=== PATIENT | female | born 1970 | race Caucasian/White ===

== ENCOUNTER 2017-05-01 09:41 | Emergency (ER) | payer BC ==
[2017-05-01] MEDS ORDERED: ORPHENADRINE CITRATE 30 MG/ML VIAL IM ONE (10:11)
[2017-05-01] MEDS ORDERED: NALBUPHINE HCL 20 MG/ML AMPUL IM ONE ×2 (10:12→12:02)
--- NOTE | 2017-05-01 10:48 | ERNOTE ---
Back Pain ER HPI Date of Service: 05/01/17 Presenting Symptoms: hx chronic back pain Time Seen by Provider: 05/01/17 09:59 Source: patient Exam Limitations: no limitations Immunizations: IMMUNIZATION HX Immunizations Up to Date No History of Influenza Vaccine Yes Hx Pneumococcal Vaccination No Allergies/Adverse Reactions: Allergies adhesive tape Adverse Reaction (Mild, Verified 06/09/16 07:57) RASH codeine Adverse Reaction (Mild, Verified 06/09/16 07:57) N/V Home Medications: HOME MEDICATIONS Desvenlafaxine Succinate [Pristiq] 50 mg PO DAILY 10/16/15 [Last Taken Unknown] Cyanocobalamin [Vitamin B-12] 1,000 mcg PO DAILY 06/06/16 [Last Taken Unknown] Ibuprofen [Motrin] 200 - 800 mg PO Q8H PRN 06/06/16 [Last Taken Unknown] Multivitamins [Multivitamin Genny] 1 cap PO DAILY 06/06/16 [Last Taken Unknown] Thyroid,Pork [[place] Thyroid] 60 mg PO DAILY 06/06/16 [Last Taken Unknown] HYDROcodone/ACETAMINOPHEN [[place] 5-325] 1 each PO Q6H PRN #60 tablet 06/09/16 [ Last Taken Unknown] Narrative: Pt. comes in with c/o severe thoracic and lumbar back pain for two weeks in which she received a set of plain films and a steroid injection and was started on Vicoprofen for this. Pt. then experienced an exacerbation of the pain this morning and called her physician and was told that she needed an MRI but they were working on scheduling it and that if she needed further treatment she needed to go to the ER. Pt. denies any numbness, tingling, SOB, CP, fever, or incontinence of bowel and bladder. Pt. ambulated into ER without difficulty. Review of Systems - Review of Systems Constitutional: Present: no symptoms reported. Absent: recent illness, fever, chills, weakness, fatigue, malaise EYE: Present: no symptoms reported ENT: Present: no symptoms reported Respiratory: Present: no symptoms reported. Absent: shortness of breath, cough , wheezing Cardiology: Present: no symptoms reported. Absent: chest pain, palpitations, edema Gastrointestinal/Abdominal: Present: no symptoms reported. Absent: nausea, vomiting, diarrhea Genitourinary: Present: no symptoms reported Musculoskeletal: Present: back pain. Absent: muscle pain, muscle stiffness, neck pain, joint pain, joint swelling Skin: Present: no symptoms reported Neurological: Present: no symptoms reported. Absent: headache, dizziness/light- headedness, numbness, tingling All Other Systems: All systems neg except as marked - Patient's Past Medical History Patient History - Medical: Hypothyroidism, Other Patient History - Cardiac/Respiratory: Other Patient History - Cancer: Cervical, Surgical Treatment Patient History - Surgical Procedures: Appendectomy, Cholecystectomy, Colonoscopy, EGD, Hysterectomy, T & A Patient History - Other: None - Family History Mother Family History - Medical: Cataracts, Diabetes Type 2 Insulin Dependent Family History - Cardiac/Respiratory: Bronchitis, CHF, Hypertension Father Family History - Medical: Cataracts, Diabetes Type 2 Insulin Dependent, Other Family History - Cardiac/Respiratory: Coronary Heart Disease, Hypertension, Hyperlipidemia - Social History Living Situations: spouse Abuse History: No History of abuse Psych History: No pertinent hx Does anyone smoke in the home?: No Smoking Status: Never smoker Have you smoked in the past 12 months: No Do you dip or chew tobacco: No Alcohol Use: occasionally Drug Use: none - Immunizations Immunizations Up to Date: No Hx Pneumococcal Vaccination: No History of Influenza Vaccine: Yes Physical Exam - Physical Exam General Appearance: Present: wd/wn, alert, no apparent distress Head Exam: Present: normal inspection, no evidence of injury Eye Exam: Normal inspection: bilateral, PERRL: bilateral, EOMI: bilateral Ears, Nose, Throat: Present: normal ENT inspection, normal pharynx Neck: Present: normal inspection, nontender, supple, full range of motion. Absent: tender lateral, tender posterior midline Respiratory: Present: no respiratory distress, normal breath sounds, no accessory muscle use, chest nontender, lungs clear. Absent: crackles, rales, rhonchi, stridor, wheezing Cardiovascular/Chest: Present: regular rate, rhythm, no murmur, normal peripheral pulses Gastrointestinal/Abdominal: Present: normal bowel sounds, nontender Back Exam: Present: vertebral tenderness - T 6/7 and L3-S1 , decreased range of motion - with pain, muscle spasm - R paraspinous, other - scoliosis curve mild Extremity Exam: Present: normal inspection, non-tender, normal range of motion, no edema Neurological Exam: Present: alert, oriented, normal mood/affect, no motor/ sensory deficits Skin Exam: Present: normal color, warm/dry. Absent: pallor, skin rash ED Progress - Vital Signs Patient's Vital Signs:: I have reviewed the patient's vital signs. Vital Signs: Vital Signs 05/01/17 05/01/17 09:46 10:31 Temperature 36.7 C Pulse Rate 70 75 Respiratory 18 Rate Blood Pressure 152/81 130/73 O2 Sat by Pulse 100 100 Oximetry - X-Ray X-Ray #1 X-Ray: thoracic Interpretation: Reviewed by me X-ray Comments: spondilolithesis at multiple levels worst at T10-11 X-Ray #2 X-Ray: lumbosacral Interpretation: Reviewed by me X-ray Comments: Spondilolithesis at multiple levels no stenosis. - Progress/Reassessment Chief Complaint: Back Pain Departure Clinical Impression: Spondyloarthropathy - Departure Disposition: Home self-care Condition: Good Instructions: Spondylolisthesis With [facility] Additional Instructions: Please follow up with primary provider for further referral to neurosurgeon and please start miralax daily 1 capful as long as you are taking narcotic pain medications. Please resume vicoprofen when you get home as directed by your PCP. May use over the counter lidoderm patches for additional pain relief. Referrals: Myron Pham DO [Primary Care Provider] -
[2017-05-01] MEDS ORDERED: NALBUPHINE HCL 20 MG/ML AMPUL ONE ×2 (11:11→12:11)
[2017-05-01] MEDS ORDERED: ORPHENADRINE CITRATE 30 MG/ML VIAL ONE (11:11)
[2017-05-01] MEDS ORDERED: LIDOCAINE 1 PATCH ADH..PATCH TP SCH (12:15)
[2017-05-01 12:23] LABS: Urine Bilirubin Negative (NEGATIVE); Urine Blood Negative /ul (NEGATIVE); Urine Ketone Negative (NEGATIVE); Urine Nitrite Negative (NEGATIVE); Urine Protein Negative (NEGATIVE); Urine Specific Gravity 1.015 SP.GR. (1.005-1.010); Urine Urobilinogen Normal (NORMAL); Urine pH 7.5 pH (5.0-7.0)
[2017-05-01 12:32] LABS: Urine Appearance Clear; Urine Bacteria None Seen; Urine Color Yellow; Urine RBC None Seen /hpf (0-5); Urine WBC None Seen /hpf (0-5)
[2017-05-01 12:36] LABS: Cocaine Ur Negative (NEGATIVE); Urine Barbiturate Negative (NEGATIVE); Urine Benzodiazepines Negative (NEGATIVE); Urine PCP Negative (NEGATIVE); Urine THC Negative (NEGATIVE)
[2017-05-01 12:37] LABS: Urine Opiates Positive (NEGATIVE)
[2017-05-01 13:00] VITALS: BP 130/80
== END 2017-05-01 13:10 | disposition home or self-care (01) ==
LOC: ER 09:41
DX: M47.9 Spondylosis, unspecified (principal); E03.9 Hypothyroidism, unspecified; Z85.41 Personal history of malignant neoplasm of cervix uteri

== ENCOUNTER 2017-05-01 18:47 | Observation (INO) | payer BC ==
[2017-05-01] MEDS ORDERED: NORMAL SALINE 1,000 ML IV PRN (19:01)
[2017-05-01] MEDS ORDERED: HYDROmorphone HCL 1 MG/ML DISP.SYRIN IV ONE ×4 (19:01→21:26)
--- NOTE | 2017-05-01 19:10 | ERNOTE ---
Back Pain ER HPI Date of Service: 05/01/17 Presenting Symptoms: hx chronic back pain Time Seen by Provider: 05/01/17 18:57 Source: patient Exam Limitations: no limitations Immunizations: IMMUNIZATION HX Immunizations Up to Date Yes History of Influenza Vaccine Yes Hx Pneumococcal Vaccination No Allergies/Adverse Reactions: Allergies adhesive tape Adverse Reaction (Mild, Verified 06/09/16 07:57) RASH codeine Adverse Reaction (Mild, Verified 06/09/16 07:57) N/V Home Medications: HOME MEDICATIONS Desvenlafaxine Succinate [Pristiq] 50 mg PO DAILY 10/16/15 [Last Taken Unknown] Cyanocobalamin [Vitamin B-12] 1,000 mcg PO DAILY 06/06/16 [Last Taken Unknown] Ibuprofen [Motrin] 200 - 800 mg PO Q8H PRN 06/06/16 [Last Taken Unknown] Multivitamins [Multivitamin Genny] 1 cap PO DAILY 06/06/16 [Last Taken Unknown] Thyroid,Pork [[place] Thyroid] 60 mg PO DAILY 06/06/16 [Last Taken Unknown] HYDROcodone/ACETAMINOPHEN [[place] 5-325] 1 each PO Q6H PRN #60 tablet 06/09/16 [ Last Taken Unknown] Narrative: Pt. comes in with c/o intractable back pain. Pt. was seen here for similar symptoms this morning and states that she had some relief but still had severe pain when left, although pt. ambulated to xray and BR without difficulty. Pt. states that after going home that she took her vicoprofen without relief and states that she is unable to even sit down to urinate. Pt. denies any new symptoms since this morning. Review of Systems - Review of Systems Constitutional: Present: no symptoms reported. Absent: recent illness, fever, chills, weakness, fatigue, malaise EYE: Present: no symptoms reported ENT: Present: no symptoms reported Respiratory: Present: no symptoms reported. Absent: shortness of breath, cough , wheezing Cardiology: Present: no symptoms reported. Absent: chest pain, palpitations, edema Gastrointestinal/Abdominal: Present: no symptoms reported. Absent: nausea, vomiting, diarrhea Genitourinary: Present: no symptoms reported. Absent: frequency, decreased urinary output Musculoskeletal: Present: back pain, muscle pain - R leg. Absent: joint pain Skin: Present: no symptoms reported. Absent: rash, change in color Neurological: Present: numbness - R frontal thigh. Absent: headache, dizziness/ light-headedness, tingling All Other Systems: All systems neg except as marked - Patient's Past Medical History Patient History - Medical: Hypothyroidism Patient History - Cardiac/Respiratory: Other Patient History - Cancer: Cervical, Surgical Treatment Patient History - Surgical Procedures: Appendectomy, Cholecystectomy, Colonoscopy, EGD, Hysterectomy, T & A Patient History - Other: None - Family History Mother Family History - Medical: Cataracts, Diabetes Type 2 Insulin Dependent Family History - Cardiac/Respiratory: Bronchitis, CHF, Hypertension Father Family History - Medical: Cataracts, Diabetes Type 2 Insulin Dependent, Other Family History - Cardiac/Respiratory: Coronary Heart Disease, Hypertension, Hyperlipidemia - Social History Living Situations: spouse Abuse History: No History of abuse Psych History: No pertinent hx Does anyone smoke in the home?: No Smoking Status: Never smoker Alcohol Use: occasionally Drug Use: none - Immunizations Immunizations Up to Date: Yes Hx Pneumococcal Vaccination: No History of Influenza Vaccine: Yes Physical Exam - Physical Exam General Appearance: Present: wd/wn, alert, no apparent distress Head Exam: Present: normal inspection, no evidence of injury Eye Exam: Normal inspection: bilateral, PERRL: bilateral, EOMI: bilateral Ears, Nose, Throat: Present: normal ENT inspection, normal pharynx Neck: Present: normal inspection, nontender. Absent: lymphadenopathy (R), lymphadenopathy (L) Respiratory: Present: no respiratory distress, normal breath sounds, no accessory muscle use, chest nontender, lungs clear Cardiovascular/Chest: Present: regular rate, rhythm, no murmur, normal peripheral pulses Gastrointestinal/Abdominal: Present: normal bowel sounds Back Exam: Present: no CVA tenderness, vertebral tenderness - L 3-S1, decreased range of motion - flexion. Absent: muscle spasm Extremity Exam: Present: normal inspection, non-tender, normal range of motion, no edema Neurological Exam: Present: alert, oriented, normal mood/affect, no motor/ sensory deficits, spooler operator automatic II-XII nml as tested, normal cerebellar test Skin Exam: Present: normal color, warm/dry. Absent: pallor, skin rash ED Progress - Date and Time Seen: Date and Time: 05/01/17 21:13 Discussed case with Celeste and she is concerned about admitting pt. here in case there is something noted on further testing that would require treatment by higher level of care although she currently does not have this. Celeste states that she contacted Dr Lesley Houston and he recommends CT of the lumbar spine although we have xrayed her back and may not learn any new information, and administration of 1 mg more dilaudid although pt. is receiving Dilaudid every half hour and Toradol despite pt. taking over 2 grams of Ibuprofen. The medications are dangerous due to the medications she is currently receiving and her blood pressure decreasing after medication administration temporarily. 05/01/17 22:10 Discussed again with celeste Pt. pain still 6/10 while resting and as it is time for another dose of Ibuprofen and Norflex will give this and get a CBC and CMP as requested by Celeste. Celeste states that she is going to notify Dr Lesley Houston of pt. again at this time. 05/01/17 22:27 Celeste called back and agrees to admit for observation for pain control. - Results and Orders Patient's Lab Results:: I have reviewed the patient's lab results. Results and Orders: previous labs without any evidence of kidney stone or UTI. - Vital Signs Patient's Vital Signs:: I have reviewed the patient's vital signs. Vital Signs: Vital Signs 05/01/17 05/01/17 13:11 18:50 Temperature 36.7 C 36.5 C Pulse Rate 81 Respiratory 16 Rate Blood Pressure 130/80 149/79 O2 Sat by Pulse 100 Oximetry - Progress/Reassessment Chief Complaint: Back Pain Departure Clinical Impression: Spondyloarthropathy, Inadequate pain control, Failure of outpatient treatment - Departure Disposition: [facility] Condition: Good Referrals: Myron Pham DO [Primary Care Provider] -
[2017-05-01] MEDS ORDERED: HYDROmorphone HCL 1 MG/ML DISP.SYRIN ONE ×3 (19:19→21:59)
[2017-05-01] MEDS ORDERED: KETOROLAC TROMETHAMINE 30 MG/ML VIAL IV ONE (22:09)
[2017-05-01] MEDS ORDERED: ORPHENADRINE CITRATE 30 MG/ML VIAL IV ONE (22:09)
[2017-05-01] MEDS ORDERED: ORPHENADRINE CITRATE 30 MG/ML VIAL ONE (22:21)
[2017-05-01] MEDS ORDERED: KETOROLAC TROMETHAMINE 30 MG/ML VIAL ONE (22:21)
[2017-05-01 22:27] LABS: Hematocrit 46.5 % (37.0-47.0); Hemoglobin 15.3 gm/dL (12.5-16.0); Mean Cell Volume 91.9 fl (78-100); Mean Corpuscular Hemoglobin 30.2 pg (27-31); Mean Corpuscular Hgb Conc 32.9 g/dl (32-36); Mean Platelet Volume 8.9 fl (6.0-9.5); Neutrophil # 7.2 K/mm3 (1.3-6.0); Neutrophil % 69.6 % (42-75.0); Platelet Count 432 K/mm3 (150-450); Red Blood Count 5.06 M/mm3 (4.2-5.4); Red Cell Distribution Width 13.2 % (11.5-14.0); White Blood Count 10.3 K/mm3 (4.0-10.5)
[2017-05-01 22:42] LABS: Anion Gap 10.8 mmol/L (6.8-13.8); BUN/Creatinine Ratio 16.5 (9.0-21.6); Bilirubin, Total 0.5 mg/dL (0.0-1.1); Ca. Corrected For Albumin 8.6 mg/dL (8.4-10.2); Calcium * 8.1 mg/dL (7.9-10.9); Carbon Dioxide 27.4 mmol/L (24-32.6); Potassium 4.2 mmol/L (3.4-4.6); Total Protein 6.5 gm/dL (6.2-8.2)
[2017-05-01] MEDS ORDERED: oxyCODONE HCL 5 MG TABLET PO PRN (23:56)
[2017-05-02] MEDS ORDERED: SENNOSIDES 8.6 MG TABLET PO SCH
[2017-05-02] MEDS ORDERED: tiZANidine HCL 4 MG TABLET PO PRN (00:12)
--- NOTE | 2017-05-02 00:33 | HP ---
<Celeste Ventura - Last Filed: 05/02/17 05:07> Chief Complaint - Chief Complaint Date of Service: 05/02/17 Time of Service: 00:17 Chief Complaint: " Low back pain". Source of HPI- Pt; reliable, ER provider report. History of Present Illness: Ms. Velez is a 46-yr-old [facility] pt whose PCP is Dr. Myron Pham in [place], [place]. Her PMH is significant for: Migraines and Hypothyroidism. Pt states that about two weeks ago, she developed lower back pain. She saw her PCP for the concern. She was started on Hydrocodone and Tizanidine. Her pain improved but then last week on Monday ( 04/26), she went back to her PCP as the pain became worse. She had X-ray imaging of her spine, along with steroid injections to her back and was started on Vicoprofen. She reports that she felt better up until this morning when she chose to come to the [facility] ER. She reports that the lower back pain was radiating to her RT thigh, but not past the knee. She also had numbness that extended to her RT thigh only. She was discharged following non-acute findings on the Lumbar and thoracic X-rays and was advised to make arrangements with her PCP to see a neurosurgeon specialist. She chose to comeback to the ED again tonight. However, she denies any changes on symptoms from this morning. She states that sitting down makes the pain worse, but standing or walking does not cause her any distress. She in-fact states that "walking makes her feel better." She denies having any incontinence or difficulty starting urine stream. The only trouble she has with urination, she says, is because she has sit down on the toilet as this causes her to have a lot of back pain. She denies having any tingling sensation on the RT leg. She also denies fevers, chills & any infection on any sites. At the ED tonight, the lab-work was unremarkable. She had a CT imaging of the Lumbar Spine which showed disc- bulge at the L5/S1 with small rt protrusion which may have close proximity to the S1 nerve root, but there were no other acute findings that involved fractures or lithesis. Her pain was inadequately controlled while at the ED & therefore will be admitted under observation status for pain control. - Patient's Past Medical History Patient History - Medical: Hypothyroidism, Migraines Patient History - Cardiac/Respiratory: Other Patient History - Cancer: Cervical, Surgical Treatment Patient History - Surgical Procedures: Appendectomy, Cholecystectomy, Colonoscopy, EGD, Hysterectomy, T & A Patient History - Other: None - Family History Mother Family History - Medical: Cataracts, Diabetes Type 2 Insulin Dependent Family History - Cardiac/Respiratory: Bronchitis, CHF, Hypertension Father Family History - Medical: Cataracts, Diabetes Type 2 Insulin Dependent, Other Family History - Cardiac/Respiratory: Coronary Heart Disease, Hypertension, Hyperlipidemia - Social History Living Situations: spouse Abuse History: No History of abuse Psych History: No pertinent hx Does anyone smoke in the home?: No Smoking Status: Never smoker Have you smoked in the past 12 months: No Do you dip or chew tobacco: No Patient requests Smoking Cessation Consult: No Initiate information on Smoking Cessation: No Alcohol Use: occasionally Drug Use: none - Immunizations Immunizations Up to Date: Yes Hx Pneumococcal Vaccination: No History of Influenza Vaccine: Yes Review Of Systems (GEN) - Review of Systems Generalized/Overall Review: Absent: Weakness, Chills, Fever EENTM: Absent: Eye Pain, Blurred Vision Respiratory: Absent: Cough, Shortness of Breath, Orthopnea Cardiac: Absent: Chest Pain, Edema, Palpitations Abdominal: Present: Constipation. Absent: Nausea, Vomiting, Hematemesis, Diarrhea Genitourinary: Absent: Burning, Itching, Urgency, Retention Musculoskeletal: Present: Back Pain. Absent: Joint Pain Neurological: Present: Headache, Numbness. Absent: Anxiety, Depressed, Parasthesia, Tingling, Weakness Skin: Absent: Dryness, Lesions, Lumps, Change in Color Endocrine: Absent: Intolerance to Cold, Increased Hunger, Flushing, Increased Thirst Misc: All systems neg except as marked Allergies/Adverse Reactions: Allergies Allergy/AdvReac Type Severity Reaction Status Date / Time adhesive tape AdvReac Mild RASH Verified 05/01/17 23:52 codeine AdvReac Mild N/V Verified 05/01/17 23:52 Home Medications: HOME MEDICATIONS Desvenlafaxine Succinate [Pristiq] 50 mg PO DAILY 10/16/15 [Last Taken Unknown] Cyanocobalamin [Vitamin B-12] 1,000 mcg PO DAILY 06/06/16 [Last Taken Unknown] Ibuprofen [Motrin] 200 - 800 mg PO Q8H PRN 06/06/16 [Last Taken Unknown] Thyroid,Pork [[place] Thyroid] 60 mg PO DAILY 06/06/16 [Last Taken Unknown] HYDROcodone/ACETAMINOPHEN [[place] 5-325] 1 each PO Q6H PRN #60 tablet 06/09/16 [ Last Taken Unknown] Phentermine/Topiramate [Qsymia 7.5 mg-46 mg Capsule] 1 each PO DAILY 05/01/17 [ Last Taken Unknown] tiZANidine HCL [Tizanidine HCl] 4 mg PO Q8H PRN 05/01/17 [Last Taken Unknown] Exam - Exam Vital Signs: Vital Signs - Last Taken Temp 37.2 C 05/01/17 23:32 Pulse 73 05/01/17 23:32 Resp 18 05/01/17 23:32 BP 146/83 05/01/17 23:32 Pulse Ox 100 05/01/17 23:32 Constitutional: Present: Alert, Oriented x3, Cooperative, No distress ENT Exam: Present: normal ENT inspection. Absent: nasal drainage Eye Exam: bilateral eye: normal inspection, PERRL Neck: Present: non-tender, full range of motion, supple Back Exam: Present: normal inspection, no CVA tenderness Breasts: Present: Exam deferred Respiratory: Present: lungs clear, normal breath sounds Cardiovascular/Chest: Present: normal peripheral pulses, regular rate, rhythm, no chest tenderness, no edema Abdomen: Present: Normal bowel sounds, soft, nontender /Rectal: Present: Exam deferred Extremity: Present: normal range of motion, non-tender, normal inspection. Absent: calf tenderness Skin Exam: Present: warm/dry, no cyanosis Lymphatic: Present: no adenopathy Neurologic: Present: alert, normal mood/affect, oriented x 3. Absent: abnormal gait, dizzy/light-headedness Appearance: Present: appropriate appearance, appropriate insight, neat Eye contact: Present: cooperative, good eye contact, normal speech Thoughts: Present: normal thought pattern, no apparent hallucination Diagnostic Studies: Laboratory Results WBC 10.3 K/mm3 (4.0-10.5) 05/01/17 22:24 RBC 5.06 M/mm3 (4.2-5.4) 05/01/17 22:24 Hgb 15.3 gm/dL (12.5-16.0) 05/01/17 22:24 Hct 46.5 % (37.0-47.0) 05/01/17 22:24 MCV 91.9 fl (78-100) 05/01/17 22:24 MCH 30.2 pg (27-31) 05/01/17 22:24 MCHC 32.9 g/dl (32-36) 05/01/17 22:24 RDW 13.2 % (11.5-14.0) 05/01/17 22:24 Plt Count 432 K/mm3 (150-450) 05/01/17 22:24 MPV 8.9 fl (6.0-9.5) 05/01/17 22:24 Immature Gran % (Auto) 0.40 % (0.001-0.429) 05/01/17 22: Immature Gran # (Auto) 0.04 K/mm3 (0.000-0.0310) H 05/01/17 22:24 Neutrophils % 69.6 % (42-75.0) 05/01/17 22:24 Lymphocytes % 18.2 % (20-51) L 05/01/17 22:24 Monocytes % 7.7 % (0.0-9) 05/01/17 22:24 Eosinophils % 3.5 % (0.0-3.0) H 05/01/17 22:24 Basophils % 0.6 % (0.0-1.0) 05/01/17 22: Nucleated RBC % 0.0 k/mm3 (0-1) 05/01/17 22:24 Neutrophils # 7.2 K/mm3 (1.3-6.0) H 05/01/17 22:24 Lymphocytes # 1.9 k/mm3 (1.5-3.5) 05/01/17 22: Monocytes # 0.8 k/mm3 (0.0-1.0) 05/01/17 22: Eosinophils # 0.4 k/mm3 (0.0-0.7) 05/01/17 22: Absolute Basophils 0.1 k/mm3 (0.0-0.1) 05/01/17 22:24 Sodium 140 mmol/L (132-142) 05/01/17 22:24 Plasma Sodium 140 mmol/L (130-142) 05/01/17 22:24 Potassium 4.2 mmol/L (3.4-4.6) 05/01/17 22:24 Chloride 106 mmol/L (97-106) 05/01/17 22:24 Carbon Dioxide 27.4 mmol/L (24-32.6) 05/01/17 22:24 Anion Gap 10.8 mmol/L (6.8-13.8) 05/01/17 22:24 BUN 13 mg/dL (3-23) 05/01/17 22:24 Creatinine 0.79 mg/dL (0.4-1.4) 05/01/17 22:24 Est GFR (Non-Af Amer) 83 mL/min (60-130) D 05/01/17 22:24 BUN/Creatinine Ratio 16.5 (9.0-21.6) 05/01/17 22:24 Random Glucose 121 mg/dL (70-110) H 05/01/17 22:24 Calcium 8.1 mg/dL (7.9-10.9) 05/01/17 22:24 Calcium Adj for Albumin 8.6 mg/dL (8.4-10.2) 05/01/17 22:24 Total Bilirubin 0.5 mg/dL (0.0-1.1) 05/01/17 22:24 AST 101 U/L (0-48) H 05/01/17 22:24 ALT 181 U/L (19-67) H 05/01/17 22:24 Alkaline Phosphatase 114 U/L (50-170) 05/01/17 22:24 Total Protein 6.5 gm/dL (6.2-8.2) 05/01/17 22:24 Albumin 3.0 gm/dl (3.4-5.0) L 05/01/17 22:24 Assessment/Plan - Assessment/Plan (1) Sciatica Assessment: Pt reports lower back pain that radiates unilaterally down to the RT Knee & ( NOT below the Knee) along with numbness sensation to the same distribution.She denies progressive or worsening of the symptom since ER encounter this morning. She denies paresthesia. She also denies changes in bladder and bowel habits, unexplained fever or weight loss & focal neurological deficit of lower extremity e.g weakness, or plegia. The CT of Spine did not reveal any acute findings involving fractures or lithesis, however there was a disc bulge at the L5/S1 with small rt protrusion which may have close proximity to the S1 nerve root. Pt advised to continue staying active and to continue normal activities of daily living. Will try small dose of Oxycodone and Gabapentin tonight, and consider adding neurontin to her prior regimen by her PCP. She needs more education on managing Sciatic pain and using other complementary methods such as ; Heat application and PT. She was encouraged to continue to following -up with PCP and that it was up to her him do determine if MRI is needed & to seek immediate care if there was progressive functional weakness of lower extremity or loss of bladder and bowel control & fever. Needs stool softeners at D/C to prevent constipation from narcotics. Problem: Acute (2) Acute low back pain Assessment: She will make arrangements with her own PCP about obtaining an MRI outpatient, and it appears that they were trying to make this arrangement with the pt's health insurance company. Problem: Acute (3) Constipation Assessment: Moderate stool retention noted on lumbar Xray- will give stimulant laxatives. Problem: Acute (4) Inadequate pain control Assessment: same as above. Problem: Acute (5) Hypothyroidism Problem: Chronic <Nawaf Bearden - Last Filed: 05/02/17 12:43> Immunizations: IMMUNIZATION HX Immunizations Up to Date Yes History of Influenza Vaccine Yes Hx Pneumococcal Vaccination No Exam - Exam Vital Signs: Vital Signs - Last Taken Temp 36.8 C 05/02/17 10:47 Pulse 82 05/02/17 10:47 Resp 18 05/02/17 10:47 BP 145/84 05/02/17 10:47 Pulse Ox 96 05/02/17 10:47 Diagnostic Studies: Laboratory Results WBC 10.3 K/mm3 (4.0-10.5) 05/01/17 22:24 RBC 5.06 M/mm3 (4.2-5.4) 05/01/17 22:24 Hgb 15.3 gm/dL (12.5-16.0) 05/01/17 22:24 Hct 46.5 % (37.0-47.0) 05/01/17 22:24 MCV 91.9 fl (78-100) 05/01/17 22:24 MCH 30.2 pg (27-31) 05/01/17 22:24 MCHC 32.9 g/dl (32-36) 05/01/17 22:24 RDW 13.2 % (11.5-14.0) 05/01/17 22:24 Plt Count 432 K/mm3 (150-450) 05/01/17 22:24 MPV 8.9 fl (6.0-9.5) 05/01/17 22:24 Immature Gran % (Auto) 0.40 % (0.001-0.429) 05/01/17 22:24 Immature Gran # (Auto) 0.04 K/mm3 (0.000-0.0310) H 05/01/17 22:24 Neutrophils % 69.6 % (42-75.0) 05/01/17 22:24 Lymphocytes % 18.2 % (20-51) L 05/01/17 22:24 Monocytes % 7.7 % (0.0-9) 05/01/17 22:24 Eosinophils % 3.5 % (0.0-3.0) H 05/01/17 22:24 Basophils % 0.6 % (0.0-1.0) 05/01/17 22:24 Nucleated RBC % 0.0 k/mm3 (0-1) 05/01/17 22:24 Neutrophils # 7.2 K/mm3 (1.3-6.0) H 05/01/17 22:24 Lymphocytes # 1.9 k/mm3 (1.5-3.5) 05/01/17 22:24 Monocytes # 0.8 k/mm3 (0.0-1.0) 05/01/17 22:24 Eosinophils # 0.4 k/mm3 (0.0-0.7) 05/01/17 22:24 Absolute Basophils 0.1 k/mm3 (0.0-0.1) 05/01/17 22:24 Sodium 140 mmol/L (132-142) 05/01/17 22:24 Plasma Sodium 140 mmol/L (130-142) 05/01/17 22:24 Potassium 4.2 mmol/L (3.4-4.6) 05/01/17 22:24 Chloride 106 mmol/L (97-106) 05/01/17 22:24 Carbon Dioxide 27.4 mmol/L (24-32.6) 05/01/17 22:24 Anion Gap 10.8 mmol/L (6.8-13.8) 05/01/17 22:24 BUN 13 mg/dL (3-23) 05/01/17 22:24 Creatinine 0.79 mg/dL (0.4-1.4) 05/01/17 22:24 Est GFR (Non-Af Amer) 83 mL/min (60-130) D 05/01/17 22:24 BUN/Creatinine Ratio 16.5 (9.0-21.6) 05/01/17 22:24 Random Glucose 121 mg/dL (70-110) H 05/01/17 22:24 Calcium 8.1 mg/dL (7.9-10.9) 05/01/17 22:24 Calcium Adj for Albumin 8.6 mg/dL (8.4-10.2) 05/01/17 22:24 Total Bilirubin 0.5 mg/dL (0.0-1.1) 05/01/17 22:24 AST 101 U/L (0-48) H 05/01/17 22:24 ALT 181 U/L (19-67) H 05/01/17 22:24 Alkaline Phosphatase 114 U/L (50-170) 05/01/17 22:24 Total Protein 6.5 gm/dL (6.2-8.2) 05/01/17 22:24 Albumin 3.0 gm/dl (3.4-5.0) L 05/01/17 22:24 Assessment/Plan - Narrative Narrative: Parenteral meds in the ER really didn't help. Had marked problems moving around. No true history of injury. Pain is low, midline and a little to the right of midline. It had just gone into her buttock, but since moved into her posterolateral right thigh. THEN, down to the level of her lateroanterior right knee. Finally lateroanterior and anterior lower legs all the way down into her toes. Her CT scan suggested a disc bulge to the right at L5. Her mother and brother had operated lumbosacral disc disease. The plan is symptom control and MRI of the lumbosacral spine. I directly supervised the care our nurse practitioner provided this patient. - Assessment/Plan (1) Acute low back pain Problem: Acute Qualifiers: Back pain laterality: midline Sciatica presence: with sciatica Sciatica laterality: sciatica of right side Qualified Code(s): M54.41 - Lumbago with sciatica, right side (2) Failure of outpatient treatment Problem: Acute (3) Sciatica Problem: Acute Qualifiers: Laterality: right Qualified Code(s): M54.31 - Sciatica, right side
[2017-05-02] MEDS: BISACODYL 5 MG TABLET.DR PO SCH ×6 (01:21→20:42)
[2017-05-02] MEDS ORDERED: BISACODYL 5 MG TABLET.DR PO SCH (01:30)
[2017-05-02] MEDS: GABAPENTIN 600 MG TABLET PO SCH ×2 (01:31→06:20)
[2017-05-02] MEDS: oxyCODONE HCL/ACETAMINOPHEN 1 TAB TABLET PO SCH ×4 (07:47→20:40)
[2017-05-02] MEDS: SENNOSIDES 8.6 MG TABLET PO SCH ×4 (08:27→20:41)
[2017-05-02] MEDS: GABAPENTIN 400 MG CAPSULE PO SCH ×4 (08:27→20:42)
[2017-05-02] MEDS: THYROID,PORK 60 MG TABLET PO SCH (08:28)
[2017-05-02] MEDS: NABUMETONE 500 MG TABLET PO SCH ×4 (08:28→20:43)
[2017-05-02] MEDS: CYANOCOBALAMIN 1,000 MCG TABLET PO SCH (08:28)
[2017-05-02] MEDS: PHENTERMINE PO SCH (08:30)
[2017-05-02] MEDS: TOPIRAMATE PO SCH (08:30)
[2017-05-02] MEDS ORDERED: oxyCODONE HCL/ACETAMINOPHEN 1 TAB TABLET PO SCH (09:00)
[2017-05-02] MEDS: MAGNESIUM HYDROXIDE 30 ML UDC PO SCH ×2 (17:31→20:41)
[2017-05-03] MEDS ORDERED: oxyCODONE HCL/ACETAMINOPHEN 1 TAB TABLET PO ONE (01:07)
[2017-05-03 06:36] LABS: Albumin * 3.2 gm/dl (3.4-5.0); Bilirubin Direct 0.1 mg/dL (0.0-0.3); Bilirubin, Total 0.6 mg/dL (0.0-1.1); Bilirubin,Indirect 0.5 mg/dL (0.1-0.7); Total Protein 6.7 gm/dL (6.2-8.2)
[2017-05-03] MEDS ORDERED: oxyCODONE HCL 5 MG TABLET PO PRN (07:24)
[2017-05-03] MEDS: BISACODYL 5 MG TABLET.DR PO SCH ×2 (09:15→13:20)
[2017-05-03] MEDS: MAGNESIUM HYDROXIDE 30 ML UDC PO SCH ×2 (09:15→13:20)
[2017-05-03] MEDS: THYROID,PORK 60 MG TABLET PO SCH (09:15)
[2017-05-03] MEDS: PHENTERMINE PO SCH (09:16)
[2017-05-03] MEDS: NABUMETONE 500 MG TABLET PO SCH ×2 (09:16→13:20)
[2017-05-03] MEDS: CYANOCOBALAMIN 1,000 MCG TABLET PO SCH (09:16)
[2017-05-03] MEDS: GABAPENTIN 400 MG CAPSULE PO SCH ×2 (09:16→13:20)
[2017-05-03] MEDS: SENNOSIDES 8.6 MG TABLET PO SCH ×2 (09:16→13:20)
[2017-05-03] MEDS: TOPIRAMATE PO SCH (09:16)
[2017-05-03] MEDS ORDERED: ONDANSETRON 8 MG TAB.RAPDIS PO STA (09:22)
[2017-05-03] MEDS: oxyCODONE HCL/ACETAMINOPHEN 1 TAB TABLET PO SCH ×2 (09:23→13:21)
--- NOTE | 2017-05-03 11:38 | PN ---
Subjective - Date and Time Seen Date: 05/03/17 Time: 07:40 Subjective Narrative: Pain was better last evening and last night. Worse this morning. Bowels are working. MRI suggests a problem to the right at L5-S1. Objective - Review of Systems Generalized/Overall Review: Reports: No Symptoms Reported EENTM: Reports: No Symptoms Reported Respiratory: Reports: No Symptoms Reported Cardiac: Reports: No Symptoms Reported Abdominal: Reports: No Symptoms Reported Genitourinary Symptoms: Reports: No Symptoms Reported Musculoskeletal Complaints: Reports: Other Neurological: Reports: Other Skin: Reports: No Symptoms Reported Endocrine: Reports: No Symptoms Reported Misc: All systems neg except as marked - Vitals Vitals: Last Vital Signs Selected Entries 05/03/17 06:40 Temperature 36.4 C L Temperature Oral Source Pulse Rate 87 Pulse Rhythm Regular Respiratory 18 Rate Respiratory Normal Depth Respiratory Normal Effort Non-Labored Blood Pressure 160/100 O2 Sat by Pulse 97 Oximetry Oxygen Delivery Room Air Method - Abnormal Lab Findings Abnormal Lab Findings: Abnormal Lab Results 05/03/17 Range/Units 06:08 AST 70 H (0-48) U/L ALT 225 H (19-67) U/L Albumin 3.2 L (3.4-5.0) gm/dl - Exam Constitutional: Present: Alert, Oriented x3, Cooperative, Well developed, Well nourished ENT Exam: Present: normal ENT inspection, hearing grossly normal Neck: Present: normal inspection Respiratory: Present: lungs clear, normal breath sounds Cardiovascular/Chest: Present: regular rate, rhythm, no murmur Abdomen: Present: Normal bowel sounds, soft, nontender, nondistended, no rebound tenderness, no hepatospenomegaly, no masses Extremity: Present: normal inspection, no pedal edema, other - midline low back tenderness Skin Exam: Present: normal color, warm/dry, no cyanosis Neurologic: Present: alert, oriented x 3 Appearance: Present: appropriate appearance, appropriate insight, neat, no memory impairment Eye contact: Present: cooperative, good eye contact, normal speech Thoughts: Present: normal thought pattern Assessment/Plan Plan Narrative: Adjust meds. KATELYN. Consider PT pool exercise. - Problems/Diagnosis (1) Acute low back pain Problem: Acute Qualifiers: Back pain laterality: midline Sciatica presence: with sciatica Sciatica laterality: sciatica of right side Qualified Code(s): M54.41 - Lumbago with sciatica, right side (2) Failure of outpatient treatment Problem: Acute (3) Sciatica Problem: Acute Qualifiers: Laterality: right Qualified Code(s): M54.31 - Sciatica, right side (4) DDD (degenerative disc disease), lumbar Problem: Acute
[2017-05-03] MEDS ORDERED: ONDANSETRON 8 MG TAB.RAPDIS PO SCH (13:00)
[2017-05-03] MEDS ORDERED: MAGNESIUM HYDROXIDE 30 ML UDC PO PRN (13:28)
--- NOTE | 2017-05-03 14:01 | OR ---
Anesthesia Pre Procedure Eval Pre Procedure Evaluation: Last Vital Signs Temp 37.1 C 05/03/17 10:32 Pulse 74 05/03/17 10:32 Resp 18 05/03/17 10:32 BP 136/84 05/03/17 10:32 Pulse Ox 99 05/03/17 10:32 O2 Oxygen Delivery Method Room Air PRE PROCEDURE EVALUATION:: DATE: 05/03/2017 TIME: 1350 INDICATIONS: Radicular low back pain. Bulging disc L5-S1. PAST MEDICAL HISTORY: No previous epidural steroid injections. EXAM: Lungs clear and equal. Heart rate regular. Procedure risks and benefits were explained to and accepted by the patient. Patient was incontinent of a diarrhea stool this morning. Patient ambulates well. No history of foot drop. Dr. Sevilla made aware. ASSESSMENT OF MEDICAL STATUS: No contraindication to epidural steroid injection. PLANNED PROCEDURE : Fluoroscopy-guided epidural steroid injection at L5-S1 Home Medications: HOME MEDICATIONS Desvenlafaxine Succinate [Pristiq] 50 mg PO DAILY 10/16/15 [Last Taken Unknown] Cyanocobalamin [Vitamin B-12] 1,000 mcg PO DAILY 06/06/16 [Last Taken Unknown] Ibuprofen [Motrin] 200 - 800 mg PO Q8H PRN 06/06/16 [Last Taken Unknown] Thyroid,Pork [[place] Thyroid] 60 mg PO DAILY 06/06/16 [Last Taken Unknown] HYDROcodone/ACETAMINOPHEN [[place] 5-325] 1 each PO Q6H PRN #60 tablet 06/09/16 [ Last Taken Unknown] Phentermine/Topiramate [Qsymia 7.5 mg-46 mg Capsule] 1 each PO DAILY 05/01/17 [ Last Taken Unknown] tiZANidine HCL [Tizanidine HCl] 4 mg PO Q8H PRN 05/01/17 [Last Taken Unknown]
[2017-05-03 14:30] VITALS: BP 125/69
--- NOTE | 2017-05-03 15:20 | DS ---
Transfer Discharge Summary - Diagnosis(s)/Problems (1) Acute low back pain Problem: Acute (2) Failure of outpatient treatment Problem: Acute (3) Sciatica Problem: Acute (4) DDD (degenerative disc disease), lumbar Problem: Acute - Course Description of Stay: Patient was improving, but there became concern today because she began to pass diarrhea stools without noticing she was doing so. For this reason, I called Dr. Murcia in [place], and discussed the situation. He agreed to accept her in ambulance transfer to the hospital in [place], and I will make the transfer arrangements here. Procedures Performed: none - Results and Findings Results and Findings: Laboratory Results - last 24 hr 05/03/17 06:08 Total Bilirubin 0.6 Direct Bilirubin 0.1 Indirect Bilirubin 0.5 AST 70 H ALT 225 H Alkaline Phosphatase 128 Total Protein 6.7 Albumin 3.2 L - Medications Medications: Active Medications Cyanocobalamin (Vitamin B-12) 1,000 mcg PO DAILY [facility] Stop: 06/01/17 09:01 Last Admin: 05/03/17 09:16 Dose: 1,000 mcg Gabapentin (Neurontin) 800 mg PO QID [facility] Stop: 06/01/17 09:01 Last Admin: 05/03/17 13:20 Dose: Not Given Sodium Chloride (Sodium Chloride 0.9%) 1,000 mls @ 999 mls/hr IV .Q1H1M PRN PRN Reason: HYDRATION Stop: 05/31/17 19:02 Last Infusion: 05/01/17 21:02 Dose: Infused Nabumetone (Relafen) 500 mg PO QID [facility] Stop: 06/01/17 09:01 Last Admin: 05/03/17 13:20 Dose: Not Given Desvenlafaxine (Succinate 50 Mg) 50 mg PO DAILY [facility] Stop: 06/01/17 09:01 Last Admin: 05/03/17 09:15 Dose: Not Given Phentermine/Topiramate [Qsymia 7 .5 Mg-46 Mg Capsule] 1 each PO DAILY [facility] Stop: 06/01/17 09:01 Last Admin: 05/03/17 09:16 Dose: Not Given Ondansetron HCl (Zofran Odt) 8 mg PO QID [facility] Stop: 06/02/17 13:01 Last Admin: 05/03/17 13:21 Dose: 8 mg Oxycodone HCl (Oxycontin) 20 mg PO Q12H [facility] Stop: 06/02/17 07:31 Last Admin: 05/03/17 07:48 Dose: 20 mg Oxycodone/Acetaminophen (Percocet 5 Mg/325 Mg) 2 tab PO QID [facility] Stop: 06/01/17 07:46 Last Admin: 05/03/17 13:21 Dose: 2 tab Thyroid ([place] Thyroid) 60 mg PO DAILY [facility] Stop: 06/01/17 09:01 Last Admin: 05/03/17 09:15 Dose: 60 mg Discontinued Medications Bisacodyl (Dulcolax) 5 mg PO Q6H [facility] Stop: 05/31/17 06:01 Last Admin: 05/02/17 01:22 Dose: Not Given Bisacodyl (Dulcolax) 5 mg PO Q6H [facility] Stop: 06/01/17 01:31 Last Admin: 05/02/17 01:31 Dose: 5 mg Bisacodyl (Dulcolax) 10 mg PO QID [facility] Stop: 06/01/17 09:01 Last Admin: 05/03/17 13:20 Dose: Not Given Gabapentin (Neurontin) 600 mg PO Q6H [facility] Stop: 05/31/17 23:59 Last Admin: 05/02/17 06:20 Dose: 600 mg Hydromorphone HCl (Dilaudid) 1 mg IV ONCE ONE Stop: 05/01/17 19:02 Last Admin: 05/01/17 19:29 Dose: 1 mg Hydromorphone HCl (Dilaudid) 0.5 mg IV ONCE ONE Stop: 05/01/17 20:02 Last Admin: 05/01/17 20:10 Dose: 0.5 mg Hydromorphone HCl (Dilaudid) 0.5 mg IV ONCE ONE Stop: 05/01/17 20:48 Last Admin: 05/01/17 21:03 Dose: 0.5 mg Hydromorphone HCl (Dilaudid) 0.5 mg IV ONCE ONE Stop: 05/01/17 21:27 Last Admin: 05/01/17 22:04 Dose: 0.5 mg Ketorolac Tromethamine (Toradol) 30 mg IV ONCE ONE Stop: 05/01/17 22:10 Last Admin: 05/01/17 22:26 Dose: 30 mg Magnesium Hydroxide (Milk Of Magnesia) 30 ml PO QID [facility] Stop: 06/01/17 17:01 Last Admin: 05/03/17 13:20 Dose: Not Given Ondansetron HCl (Zofran Odt) 8 mg PO ONCE STA Stop: 05/03/17 09:23 Last Admin: 05/03/17 09:50 Dose: 8 mg Orphenadrine Citrate (Norflex) 60 mg IV ONCE ONE Stop: 05/01/17 22:10 Last Admin: 05/01/17 22:25 Dose: 60 mg Oxycodone HCl (Oxycodone) 10 mg PO Q6H PRN PRN Reason: Pain Stop: 05/31/17 23:57 Last Admin: 05/02/17 01:32 Dose: 10 mg Oxycodone/Acetaminophen (Percocet 5 Mg/325 Mg) 1 tab PO ONCE ONE Stop: 05/03/17 01:08 Last Admin: 05/03/17 01:15 Dose: 1 tab Senna (Senokot) 17.2 mg PO QID [facility] Stop: 06/01/17 00:01 Last Admin: 05/02/17 01:31 Dose: 17.2 mg Senna (Senokot) 34.4 mg PO QID [facility] Stop: 06/01/17 00:01 Last Admin: 05/03/17 13:20 Dose: Not Given - Disposition Disposition: [facility] Condition: Good
== END 2017-05-03 16:40 | disposition short-term general hospital (02) ==
LOC: ER 18:47 → MS 22:54
PROVIDERS: ADMIT Nurse Practitioner; ATTEND Allergy & Immunology
DX: M54.41 Lumbago with sciatica, right side (principal); M47.816 Spondylosis without myelopathy or radiculopathy, lumbar region; E03.9 Hypothyroidism, unspecified; M51.17 Intervertebral disc disorders with radiculopathy, lumbosacral region; K59.8 Other specified functional intestinal disorders
CPT/HCPCS: 36415; 72131; 72148; 80053; 80076; 85025; 96374; 96375; 96376; 99285; G0378